=== PATIENT | female | born 1960 | race Two or more races ===

== ENCOUNTER 2021-10-16 11:21 | Emergency (ER) | payer BC ==
[~2021-10-16] VITALS: Ht 172.7 cm; Wt 81.6 kg
[2021-10-16] MEDS ORDERED: ZITHROMAX500 MG (11:42)
[2021-10-16] MEDS ORDERED: ZOLOFT50 MG (11:42)
[2021-10-16] MEDS ORDERED: NEXIUM40 M1 (11:42)
== END 2021-10-16 14:31 | disposition home or self-care (01) ==
LOC: ER 11:21
DX: U07.1 COVID-19 (principal); E86.0 Dehydration